=== PATIENT | female | born 1985 | race Caucasian/White ===

== ENCOUNTER 2023-03-25 08:00 | Inpatient (IN) | payer OTHER ==
[2023-03-25] MEDS ORDERED: CITRIC ACID/SODIUM CITRATE 30 ML UNIT-DOSE CUP PO ONE (09:42)
[2023-03-25] MEDS ORDERED: ELECTROLYTE-148 SOLN 500 ML IV ONE (09:42)
[2023-03-25 09:48] VITALS: BMI 36.5
[2023-03-25] MEDS ORDERED: ONDANSETRON 4 MG/2 ML VIAL IVPUSH PRN (13:23)
[2023-03-25] MEDS ORDERED: morphine SULFATE/PF 1 MG/2 ML (2cc Syringe - QUVA) ONE (13:51)
[2023-03-25] MEDS ORDERED: ceFAZolin SODIUM 1 GM VIAL ONE ×2 (14:58→14:59)
[2023-03-25] MEDS ORDERED: OXYTOCIN 10 UNITS/ML VIAL ONE ×4 (14:59)
[2023-03-25] MEDS ORDERED: METHYLERGONOVINE MALEATE 0.2 MG/1 ML AMP IM PRN (15:10)
[2023-03-25] MEDS ORDERED: IBUPROFEN 800 MG/8 ML IJ IVPB PRN (15:12)
[2023-03-25] MEDS ORDERED: OXYTOCIN 20 UNITS in 0.9% NS 20 UNIT/1,000 ML INFUS.BAG IV SCH (15:15)
[2023-03-25] MEDS ORDERED: ACETAMINOPHEN INJECTION 100 ML IVPB ONE (16:04)
[2023-03-25] MEDS: ACETAMINOPHEN 1000 MG/100 ML BAG IVPB SCH ×2 (16:05→23:23)
[2023-03-25] MEDS ORDERED: IBUPROFEN 800 MG/8 ML IJ IVPB ONE (16:36)
[2023-03-26] MEDS ORDERED: oxyCODONE HCL 5 MG TABLET PO PRN ×2 (03:10)
[2023-03-26] MEDS: SIMETHICONE 80 MG TAB.CHEW (FP) PO PRN ×4 (06:36→21:57)
[2023-03-26] MEDS: ACETAMINOPHEN 1000 MG/100 ML BAG IVPB SCH (06:37)
[2023-03-26 08:48] LABS: BASO % 0.4 % (0-2.0); EOS % 1.8 % (0-4.5); HEMATOCRIT 34.4 % (32.4-45.2); HEMOGLOBIN 11.8 GM/dL (10.7-15.3); LYMPH % 16.9 % (8-40); MCH 30.1 pg (25.7-33.7); MCHC 34.4 g/dl (32.0-36.0); MEAN CELL VOLUME 87.4 fl (80-96); MEAN PLT VOLUME 8.1 fl (7.5-11.1); NEUT % 72.9 % (42.8-82.8); PLATELET COUNT 249 10^3/uL (134-434); RBC 3.93 M/mm3 (3.60-5.2); RDW 13.5 % (11.6-15.6); WHITE BLOOD COUNT 9.8 K/mm3 (4.0-10.0)
[2023-03-26] MEDS: IBUPROFEN 600 MG TABLET (FP) PO PRN ×3 (12:13→21:57)
[2023-03-26] MEDS ORDERED: BISACODYL 10 MG SUPP.RECT RC PRN (15:10)
[2023-03-27] MEDS: SIMETHICONE 80 MG TAB.CHEW (FP) PO PRN ×2 (04:01→17:05)
[2023-03-27] MEDS: IBUPROFEN 600 MG TABLET (FP) PO PRN ×3 (04:01→21:52)
[2023-03-27 10:06] VITALS: TEMP 97.8
[2023-03-27] MEDS: ACETAMINOPHEN 325 MG TABLET (FP) PO PRN ×2 (12:11→19:34)
[2023-03-28] MEDS: ACETAMINOPHEN 325 MG TABLET (FP) PO PRN (00:20)
[2023-03-28] MEDS: SIMETHICONE 80 MG TAB.CHEW (FP) PO PRN (00:20)
[2023-03-28] MEDS: IBUPROFEN 600 MG TABLET (FP) PO PRN (07:03)
[2023-03-28 07:46] LABS: BASO % 0.7 % (0-2.0); EOS % 3.3 % (0-4.5); HEMATOCRIT 34.3 % (32.4-45.2); HEMOGLOBIN 11.3 GM/dL (10.7-15.3); LYMPH % 30.1 % (8-40); MCH 29.4 pg (25.7-33.7); MCHC 32.9 g/dl (32.0-36.0); MEAN CELL VOLUME 89.5 fl (80-96); MEAN PLT VOLUME 7.6 fl (7.5-11.1); MONO % 6.5 % (3.8-10.2); NEUT % 59.4 % (42.8-82.8); PLATELET COUNT 299 10^3/uL (134-434); RBC 3.83 M/mm3 (3.60-5.2); RDW 13.3 % (11.6-15.6); WHITE BLOOD COUNT 7.6 K/mm3 (4.0-10.0)
[2023-03-28 10:32] VITALS: BP 112/76; PULSE 81; RESP 18
== END 2023-03-28 14:35 | disposition home or self-care (01) | DRG 788 ==
LOC: JLDR 08:00 → J3W 16:50
PROVIDERS: ADMIT Obstetrics & Gynecology; ATTEND Obstetrics & Gynecology
PROC: 10D00Z1 Extraction of Products of Conception, Low, Open Approach (ICD-10-PCS; principal; 2023-03-25)
DX: O24.429 Gestational diabetes mellitus in childbirth, unspecified control (principal); O36.63X0 Maternal care for excessive fetal growth, third trimester, not applicable or unspecified; Z3A.39 39 weeks gestation of pregnancy; Z37.0 Single live birth
CPT/HCPCS: 36415; 82962; 85025; 88307-TC; 94010